=== PATIENT | male | born 1990 | race Hispanic/Latino ===

== ENCOUNTER 2018-09-25 18:18 | Observation (INO) | payer SELFPAY ==
[2018-09-25 18:31] VITALS: BMI 26.5
[2018-09-25] MEDS ORDERED: Sodium Chloride 0.9% 1,000 ML IV SCH (18:45)
[2018-09-25 19:08] LABS: BASO % 0.3 % (0.0-2.0); EOS % 0.1 % (0.0-4.0); HEMOGLOBIN 17.3 g/dL (12.0-18.0); LYMPH # 2.9 K/uL (1.0-4.3); LYMPH % 21.4 % (20.0-40.0); MEAN CELL VOLUME 86.2 fL (80.0-94.0); MEAN CORPUSCULAR HEMOGLOBIN 29.3 pg (27.0-31.0); MEAN PLATELET VOLUME 8.6 fL (7.2-11.7); MONO # 0.9 K/uL (0.0-0.8); MONO % 6.5 % (0.0-10.0); NEUT # 9.6 K/uL (1.8-7.0); NEUT % 71.7 % (50.0-75.0); NRBC % 0.1 % (0.0-2.0); RBC 5.92 Mil/uL (4.40-5.90); RED CELL DISTRIBUTION WIDTH 12.9 % (11.5-14.5); WHITE BLOOD COUNT 13.4 K/uL (4.8-10.8)
--- NOTE | 2018-09-25 19:19 | C.PDOC ---
History Of Present Illness 28 year old male, with no significant past medical history, presents to the ED for evaluation of palpitation. Patient admits to having 4-5 shots of alcohol last night and then states he went to bed. Upon waking this morning, patient reports feeling lethargic, lightheadedness, shortness of breath, and flu-like symptoms. Patient checked his heart rate, realized it was elevated and decided to present to the ED for further evaluation. Patient denies chest pain, vomiting, leg swelling, or any sickness prior to today. Patient denies excessive caffeine or stimulant use. Patient does not follow up with a regular doctor, because he is from [place]. 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 Patient denies past medical history, family history, chronic illness or surgical history. Patient report social drinking, denies drug use. Patient states he quit smoking one month ago. Time Seen by Provider: 09/25/18 18:42 Chief Complaint (Nursing): Palpitations History Per: Patient History/Exam Limitations: no limitations Onset/Duration Of Symptoms: Hrs Current Symptoms Are (Timing): Still Present Associated Symptoms: denies: Chest Pain Additional History Per: Patient Past Medical History Reviewed: Historical Data, Nursing Documentation, Vital Signs Vital Signs: Last Vital Signs Temp 97.5 F L 09/25/18 18:31 Pulse 132 H 09/25/18 18:31 Resp 24 09/25/18 18:31 BP 127/82 09/25/18 18:31 Pulse Ox 99 09/25/18 18:31 - Medical History PMH: No Chronic Diseases Surgical History: No Surg Hx Family History: States: Unknown Family Hx - Social History Hx Alcohol Use: Yes Hx Substance Use: No - Immunization History Hx Tetanus Toxoid Vaccination: No Hx Influenza Vaccination: No Hx Pneumococcal Vaccination: No Review Of Systems Cardiovascular: Negative for: Chest Pain Respiratory: Positive for: Shortness of Breath Gastrointestinal: Negative for: Vomiting Neurological: Positive for: Other (lightheadedness ) Physical Exam - Physical Exam Appears: Non-toxic, No Acute Distress Skin: Warm, Dry, Pale (mild) Head: Atraumatic, Normacephalic Eye(s): bilateral: PERRL, EOMI Oral Mucosa: Moist Lips: Normal Appearing Neck: Normal ROM, Trachea Midline Chest: Symmetrical, No Tenderness Cardiovascular: No Murmur, Other (tachycardic with irregularly irregular rhythm ) Respiratory: Normal Breath Sounds, No Accessory Muscle Use, No Rales, No Wheezing Gastrointestinal/Abdominal: Soft, No Tenderness Back: Normal Inspection, No CVA Tenderness Extremity: Normal ROM, No Deformity Neurological/Psych: Oriented x3, Normal Speech, Normal Cranial Nerves ED Course And Treatment - Laboratory Results Result Diagrams: 09/25/18 19:02 09/25/18 19:02 ECG: Interpreted By Me, Viewed By Me ECG Rhythm: Atrial Fibrillation Interpretation Of ECG: Atrial Fibrillation at rate 164bpm with RVR. Rate From EC O2 Sat by Pulse Oximetry: 99 (on RA ) Pulse Ox Interpretation: Normal Critical Care Time - Critical Care Note Total Time (in mins): 30 Documented critical care: time excludes all time spent performing seperately billable procedures. Medical Decision Making Medical Decision Making: Impression: new onset atrial fibrillation Progress: Bloodwork, urinalysis, CXR, EKG ordered and reviewed. Caridem IVP and IV Fluids given. 1999 Heart rate decreased to low 100s from 160s in atrial fib. Labs with leukocytosis, otherwise unremarkable. JADE Saavedra Hospitalist for further management in observation Disposition Counseled Patient/Family Regarding: Studies Performed, Diagnosis - Disposition Disposition: HOSPITALIZED Disposition Time: 20:00 Condition: FAIR - POA Present On Arrival: None - Clinical Impression Clinical Impression: Atrial fibrillation with RVR - Scribe Statement The provider has reviewed the documentation as recorded by the Scribe (Vicky Arellano) Provider Attestation: All medical record entries made by the Scribe were at my direction and personally dictated by me. I have reviewed the chart and agree that the record accurately reflects my personal performance of the history, physical exam, medical decision making, and the department course for this patient. I have also personally directed, reviewed, and agree with the discharge instructions and disposition.
[2018-09-25 19:20] LABS: ALB/GLOB RATIO 1.7 (1.0-2.1); ALBUMIN 5.3 g/dL (3.5-5.0); ALT/SGPT 39 U/L (21-72); AST/SGOT 28 U/L (17-59); BLOOD UREA NITROGEN 19 mg/dL (9-20); GFR NON-AFRICAN AMERICAN > 60
[2018-09-25 19:26] LABS: INR 1.1; PROTHROMBIN TIME 12.2 SECONDS (9.7-12.2)
[2018-09-25 19:37] LABS: B-TYPE NATRIURETIC PEPTIDE 273 pg/mL (0-450)
[2018-09-25] MEDS ORDERED: Sodium Chloride 0.9% 1,000 ML IV STA (20:27)
--- NOTE | 2018-09-25 21:38 | CP.PCM.HP ---
<Merline Levy - Last Filed: 09/26/18 04:35> History of Present Illness - History of Present Illness History of Present Illness: CC: palpitations Patient is a 28 year old male with no pmhx who presents to the ED for evaluation of new onset palpitations. Patient admits to drinking the evening prior, approx 4-5 shots, and woke up this morning and felt his heart beating fast, experienced some dizziness and weakness. Patient reports his roommate recently had the flu, and assumed he had the same. 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 Patient has never experienced these symptoms before, denies chest pain, nausea, recent illness, diarrhea, drug use, excessive caffeine intake. pmhx: denies pshx: denies meds: denies allergies: NKDA SocHx: former smoker 6 pack year, quit 3.5 wks ago, social alcohol use, denies drug use. FamHx: denies Present on Admission - Present on Admission Any Indicators Present on Admission: No Review of Systems - Constitutional Constitutional: Weakness - Cardiovascular Cardiovascular: Dyspnea, Irregular Heart Rhythm, Palpitations, Rapid Heart Rate. absent: Chest Pain, Radiating Pain, Syncope - Respiratory Respiratory: absent: Cough, Chest Congestion - Gastrointestinal Gastrointestinal: absent: Abdominal Pain, Diarrhea, Nausea - Neurological Neurological: Weakness - Psychiatric Psychiatric: absent: Anxiety - Endocrine Endocrine: Palpitations. absent: Heat Intolorance Past Patient History - Past Social History Smoking Status: Former Smoker - MUSCULOSKELETAL/RHEUMATOLOGICAL Other/Comment: nose fracture. - PSYCHIATRIC Hx Substance Use: No - SURGICAL HISTORY Hx Surgeries: No - ANESTHESIA Hx Anesthesia: No Meds Allergies/Adverse Reactions: Allergies Allergy/AdvReac Type Severity Reaction Status Date / Time No Known Allergies Allergy Verified 09/25/18 18:30 Physical Exam - Constitutional Appears: Non-toxic, No Acute Distress - Head Exam Head Exam: ATRAUMATIC, NORMAL INSPECTION, NORMOCEPHALIC - Eye Exam Eye Exam: EOMI, Normal appearance - ENT Exam ENT Exam: Mucous Membranes Moist, Normal Exam - Neck Exam Neck exam: Positive for: Normal Inspection - Respiratory Exam Respiratory Exam: Clear to Auscultation Bilateral, NORMAL BREATHING PATTERN. absent: Respiratory Distress - Cardiovascular Exam Cardiovascular Exam: Tachycardia, Irregular Rhythm, +S1, +S2 - GI/Abdominal Exam GI & Abdominal Exam: Normal Bowel Sounds, Soft. absent: Distended - Extremities Exam Extremities exam: Positive for: normal inspection. Negative for: calf tenderness, pedal edema - Neurological Exam Neurological exam: Alert, Oriented x3 - Psychiatric Exam Psychiatric exam: Normal Affect, Normal Mood - Skin Skin Exam: Dry, Intact, Normal Color, Warm Results - Vital Signs Recent Vital Signs: Last Vital Signs Temp 97.5 F L 09/25/18 18:31 Pulse 112 H 09/25/18 20:30 Resp 16 09/25/18 20:30 BP 126/78 09/25/18 20:30 Pulse Ox 97 09/25/18 20:30 - Labs Result Diagrams: 09/25/18 19:02 09/25/18 19:02 Labs: Laboratory Results - last 24 hr 09/25/18 09/25/18 09/25/18 19:02 19:02 19:02 WBC 13.4 H RBC 5.92 H Hgb 17.3 Hct 51.0 MCV 86.2 MCH 29.3 MCHC 34.0 RDW 12.9 Plt Count 343 MPV 8.6 Neut % (Auto) 71.7 Lymph % (Auto) 21.4 Gaines % (Auto) 6.5 Eos % (Auto) 0.1 Baso % (Auto) 0.3 Neut # (Auto) 9.6 H Lymph # (Auto) 2.9 Gaines # (Auto) 0.9 H Eos # (Auto) 0.0 Baso # (Auto) 0.0 PT 12.2 INR 1.1 APTT 33 Sodium 140 Potassium 3.9 Chloride 100 Carbon Dioxide 24 Anion Gap 20 BUN 19 Creatinine 1.0 Est GFR ( Amer) > 60 Est GFR (Non-Af Amer) > 60 Random Glucose 116 H Calcium 10.0 Total Bilirubin 1.3 AST 28 ALT 39 Alkaline Phosphatase 57 Total Creatine Kinase 126 Troponin I < 0.0120 NT-Pro-B Natriuret Pep 273 Total Protein 8.4 H Albumin 5.3 H Globulin 3.1 Albumin/Globulin Ratio 1.7 TSH 3rd Generation 1.52 Alcohol, Quantitative < 10 Assessment & Plan - Assessment and Plan (Free Text) Assessment: 28 year old male admitted for evaluation and treatment of new onset A Fib Plan: New Onset A Fib with RVR -EKG on admission: A Fib with RVR, rate of 164/min -monitor on telemetry -cardizem drip in ED w/ rate in 120s, still in a fib -transitioned to cardizem 60mg po q6h -lovenox 80mg q12, therapeutic AC pending need for cardioversion -f/u echo -TSH WNL, f/u lipid panel -Cardio consult Dr. Doherty Ppx -VTE ppx, SCDs -GI ppx, not indicated Discussed with Dr. Saavedra -Merline Levy, PGY-1 <Arsh Saavedra P - Last Filed: 09/26/18 06:45> Results - Vital Signs Recent Vital Signs: Last Vital Signs Temp 98.1 F 09/26/18 04:18 Pulse 93 H 09/26/18 04:18 Resp 20 09/26/18 04:18 BP 109/72 09/26/18 04:18 Pulse Ox 98 09/26/18 04:18 - Labs Result Diagrams: 09/25/18 19:02 09/25/18 19:02 Labs: Laboratory Results - last 24 hr 09/25/18 09/25/18 09/25/18 19:02 19:02 19:02 WBC 13.4 H RBC 5.92 H Hgb 17.3 Hct 51.0 MCV 86.2 MCH 29.3 MCHC 34.0 RDW 12.9 Plt Count 343 MPV 8.6 Neut % (Auto) 71.7 Lymph % (Auto) 21.4 Gaines % (Auto) 6.5 Eos % (Auto) 0.1 Baso % (Auto) 0.3 Neut # (Auto) 9.6 H Lymph # (Auto) 2.9 Gaines # (Auto) 0.9 H Eos # (Auto) 0.0 Baso # (Auto) 0.0 PT 12.2 INR 1.1 APTT 33 Sodium 140 Potassium 3.9 Chloride 100 Carbon Dioxide 24 Anion Gap 20 BUN 19 Creatinine 1.0 Est GFR ( Amer) > 60 Est GFR (Non-Af Amer) > 60 Random Glucose 116 H Calcium 10.0 Total Bilirubin 1.3 AST 28 ALT 39 Alkaline Phosphatase 57 Total Creatine Kinase 126 Troponin I < 0.0120 NT-Pro-B Natriuret Pep 273 Total Protein 8.4 H Albumin 5.3 H Globulin 3.1 Albumin/Globulin Ratio 1.7 TSH 3rd Generation 1.52 Alcohol, Quantitative < 10 Attending/Attestation - Attestation I have personally seen and examined this patient.: Yes I have fully participated in the care of the patient.: Yes I have reviewed all pertinent clinical information: Yes Notes (Text): 09/26/18 06:42 New diagnosis of afib with RVR Recent alcohol consumption 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
[2018-09-25] MEDS: Enoxaparin 80 mg Syringe SC SCH (22:15)
[2018-09-26 00:23] VITALS: RESP 20
[2018-09-26 08:01] LABS: BASO % 0.5 % (0.0-2.0); EOS # 0.1 K/uL (0.0-0.7); EOS % 1.4 % (0.0-4.0); HEMOGLOBIN 16.2 g/dL (12.0-18.0); LYMPH # 2.9 K/uL (1.0-4.3); LYMPH % 30.3 % (20.0-40.0); MEAN CELL VOLUME 86.3 fL (80.0-94.0); MEAN CORPUSCULAR HEMOGLOBIN 29.9 pg (27.0-31.0); MEAN CORPUSCULAR HGB CONC 34.7 g/dL (33.0-37.0); MEAN PLATELET VOLUME 8.5 fL (7.2-11.7); MONO # 0.7 K/uL (0.0-0.8); MONO % 7.7 % (0.0-10.0); NEUT # 5.7 K/uL (1.8-7.0); NEUT % 60.1 % (50.0-75.0); RBC 5.42 Mil/uL (4.40-5.90); WHITE BLOOD COUNT 9.4 K/uL (4.8-10.8)
[2018-09-26 08:13] VITALS: TEMP 98.2
[2018-09-26 08:30] LABS: LDL CHOLESTEROL 115 mg/dL (0-129)
[2018-09-26 08:41] LABS: ALB/GLOB RATIO 1.7 (1.0-2.1); ALBUMIN 4.3 g/dL (3.5-5.0); ALT/SGPT 36 U/L (21-72); AST/SGOT 36 U/L (17-59); BLOOD UREA NITROGEN 20 mg/dL (9-20); CALCIUM 9.3 mg/dl (8.6-10.4); GFR NON-AFRICAN AMERICAN > 60; HDL CHOLESTEROL 53 mg/dL (30-70)
--- NOTE | 2018-09-26 10:07 | RAD ---
Date of service: 09/25/2018 HISTORY: Tachycardia COMPARISON: No prior. FINDINGS: LUNGS: The lungs are well inflated and clear. PLEURA: No pleural effusions or pneumothorax. CARDIOVASCULAR: The heart is normal in size. No aortic atherosclerotic calcifications present. OSSEOUS STRUCTURES: Within normal limits for the patient's age. VISUALIZED UPPER ABDOMEN: Normal. OTHER FINDINGS: None. IMPRESSION: No active pulmonary disease.
[2018-09-26] MEDS: Enoxaparin 80 mg Syringe SC SCH (10:57)
[2018-09-26] MEDS ORDERED: Influenza Vaccine 60 mcg/0.5 mL SYR (4YR UP) IM ONE (15:40)
[2018-09-26 16:01] VITALS: BP 119/80; PULSE 79; O2SAT 98
--- NOTE | 2018-09-26 18:27 | CARD ---
APPROVED REPORT Date of service: 09/26/2018 EXAM: Two-dimensional and M-mode echocardiogram with Doppler and color Doppler. Other Information Quality : GoodRhythm : INDICATION Dizziness and Vertigo Palpitations irregular heart rhythm RISK FACTORS Hypertension 2D DIMENSIONS IVSd0.8 (0.7-1.1cm)LVDd5.0 (3.9-5.9cm) PWd0.9 (0.7-1.1cm)LA Cvbmhz16 (18-58mL) LVDs3.6 (2.5-4.0cm)FS (%) 27.0 % LVEF (%)52.4 (>50%)LVEF (Hernandez's)59.10 % M-Mode DIMENSIONS Left Atrium (MM)3.40 (2.5-4.0cm)IVSd1.01 (0.7-1.1cm) Aortic Root3.38 (2.2-3.7cm)LVDd4.77 (4.0-5.6cm) Aortic Cusp Exc.2.38 (1.5-2.0cm)PWd0.98 (0.7-1.1cm) FS (%) 33 %LVDs3.20 (2.0-3.8cm) LVEF (%)61 (>50%) Mitral Valve MV E Pybktpmb89.8cm/sMV A Lszczpbt91.3cm/sE/A ratio1.1 TDI Lateral E' Peak V13.03cm/sMedial E' Peak V11.77cm/sE/Lateral E'4.4 E/Medial E'4.9 Tricuspid Valve TR Peak Xhdhllbs036tb/sTR Peak Gr.67enCzMSUV49beKs LEFT VENTRICLE The left ventricle is normal size. There is normal left ventricular wall thickness. The left ventricular function is normal. The left ventricular ejection fraction is within the normal range. 59% No regional wall motion abnormalities noted. The left ventricular diastolic function is normal. No left ventricle thrombus noted on this study. There is no ventricular septal defect visualized. There is no left ventricular aneurysm. There is no mass noted in the left ventricle. RIGHT VENTRICLE The right ventricle is normal size. There is normal right ventricular wall thickness. The right ventricular systolic function is normal. ATRIA The left atrium size is normal. The right atrium size is normal. The interatrial septum is intact with no evidence for an atrial septal defect. AORTIC VALVE The aortic valve is normal in structure and function. No aortic regurgitation is present. There is no aortic valvular stenosis. There is no aortic valvular vegetation. MITRAL VALVE The mitral valve is normal in structure and function. There is no evidence of mitral valve prolapse. There is no mitral valve stenosis. There is no mitral valve regurgitation noted. TRICUSPID VALVE The tricuspid valve is normal in structure and function. There is mild tricuspid valve regurgitation noted. There is no tricuspid valve prolapse or vegetation. There is no tricuspid valve stenosis. PULMONIC VALVE The pulmonary valve is normal in structure and function. There is no pulmonic valvular regurgitation. There is no pulmonic valvular stenosis. GREAT VESSELS The aortic root is normal in size. The ascending aorta is normal in size. The pulmonary artery is normal. The IVC is normal in size and collapses >50% with inspiration. PERICARDIAL EFFUSION The pericardium appears normal. There is no pleural effusion. <Conclusion> Normal Study
--- NOTE | 2018-09-26 22:38 | CP.PCM.DIS ---
Provider - Provider Date of Admission: 09/25/18 20:22 Attending physician: Arsh Saavedra MD Consults: 09/25/18 21:53 Cardiology Consult Routine Comment: Consulting Provider: Denton Doherty Consulting Physician: Denton Doherty Reason for Consult: new onset A Fib Time Spent in preparation of Discharge (in minutes): 35 Diagnosis - Discharge Diagnosis (1) Atrial fibrillation with RVR Status: Acute Hospital Course - Lab Results Lab Results: Most Recent Lab Values WBC 9.4 K/uL (4.8-10.8) 09/26/18 07:55 RBC 5.42 Mil/uL (4.40-5.90) 09/26/18 07:55 Hgb 16.2 g/dL (12.0-18.0) 09/26/18 07:55 Hct 46.8 % (35.0-51.0) 09/26/18 07:55 MCV 86.3 fL (80.0-94.0) 09/26/18 07:55 MCH 29.9 pg (27.0-31.0) 09/26/18 07:55 MCHC 34.7 g/dL (33.0-37.0) 09/26/18 07:55 RDW 13.0 % (11.5-14.5) 09/26/18 07:55 Plt Count 265 K/uL (130-400) 09/26/18 07:55 MPV 8.5 fL (7.2-11.7) 09/26/18 07:55 Neut % (Auto) 60.1 % (50.0-75.0) 09/26/18 07:55 Lymph % (Auto) 30.3 % (20.0-40.0) 09/26/18 07:55 [place] % (Auto) 7.7 % (0.0-10.0) 09/26/18 07:55 Eos % (Auto) 1.4 % (0.0-4.0) 09/26/18 07:55 Baso % (Auto) 0.5 % (0.0-2.0) 09/26/18 07:55 Neut # (Auto) 5.7 K/uL (1.8-7.0) 09/26/18 07:55 Lymph # (Auto) 2.9 K/uL (1.0-4.3) 09/26/18 07:55 [place] # (Auto) 0.7 K/uL (0.0-0.8) 09/26/18 07:55 Eos # (Auto) 0.1 K/uL (0.0-0.7) 09/26/18 07:55 Baso # (Auto) 0.0 K/uL (0.0-0.2) 09/26/18 07:55 PT 12.2 SECONDS (9.7-12.2) 09/25/18 19:02 INR 1.1 09/25/18 19:02 APTT 33 SECONDS (21-34) 09/25/18 19:02 Sodium 138 mmol/L (132-148) 09/26/18 07:56 Potassium 4.8 mmol/L (3.6-5.2) 09/26/18 07:56 Chloride 101 mmol/L (98-107) 09/26/18 07:56 Carbon Dioxide 29 mmol/L (22-30) 09/26/18 07:56 Anion Gap 13 (10-20) 09/26/18 07:56 BUN 20 mg/dL (9-20) 09/26/18 07:56 Creatinine 1.0 mg/dL (0.8-1.5) 09/26/18 07:56 Est GFR ( Amer) > 60 09/26/18 07:56 Est GFR (Non-Af Amer) > 60 09/26/18 07:56 Random Glucose 103 mg/dL (75-110) 09/26/18 07:56 Calcium 9.3 mg/dl (8.6-10.4) 09/26/18 07:56 Total Bilirubin 1.1 mg/dL (0.2-1.3) 09/26/18 07:56 AST 36 U/L (17-59) 09/26/18 07:56 ALT 36 U/L (21-72) 09/26/18 07:56 Alkaline Phosphatase 51 U/L (38-126) 09/26/18 07:56 Total Creatine Kinase 126 U/L (55-170) 09/25/18 19:02 Troponin I < 0.0120 ng/mL (0.00-0.120) 01/10/19 19:02 NT-Pro-B Natriuret Pep 273 pg/mL (0-450) 09/25/18 19:02 Total Protein 6.9 g/dL (6.3-8.3) 09/26/18 07:56 Albumin 4.3 g/dL (3.5-5.0) 09/26/18 07:56 Globulin 2.5 gm/dL (2.2-3.9) 09/26/18 07:56 Albumin/Globulin Ratio 1.7 (1.0-2.1) 09/26/18 07:56 Triglycerides 98 mg/dL (0-149) 09/26/18 07:56 Cholesterol 182 mg/dL (0-199) 09/26/18 07:56 LDL Cholesterol Direct 115 mg/dL (0-129) 09/26/18 07:56 HDL Cholesterol 53 mg/dL (30-70) 09/26/18 07:56 TSH 3rd Generation 1.52 mIU/L (0.46-4.68) 09/25/18 19:02 Alcohol, Quantitative < 10 mg/dl (0-10) 09/25/18 19:02 - Hospital Course Hospital Course: On admission: Patient is a 28 year old male with no pmhx who presents to the ED for evaluation of new onset palpitations. Patient admits to drinking the evening prior, approx 4-5 shots, and woke up this morning and felt his heart beating fast, experienced some dizziness and weakness. Patient reports his roommate recently had the flu, and assumed he had the same. 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 Patient has never experienced these symptoms before, denies chest pain, nausea, recent illness, diarrhea, drug use, excessive caffeine intake. Hospital Course: Patient was admitted for atrial fibrillation with RVR, EKG showed patient's heart rate to be 165. Patinet was given Cardizem 20mg IVP stat in the ED. Patient's heart rate remained elevated and was place on a Cardizem drip. Patient Also received therapeutic lovenox, in preperation to cardiovert in the morning. Heart rate then lowered into the 90s. The drip was discontinued and patient was placed on Cardizem 60mg QID. The next morning, patient had reverted to NSR without further intervention. Patient went for echo- preliminary read was normal, however patient should follow up official read with Dr. Doherty. Discharge instructions: Patient is stable for discharge as per Dr. Isaac. Patient is to avoid alcohol as it may be a trigger for your symptoms. Also avoid caffeine and any other stimulants. You are recommended to start taking Aspirin 81mg daily as a precaution until you follow up with the straw baler. You are to follow up with Dr. Doherty, straw baler, at his outpatient clinic. Call [phone] to make an appointment for Saturday. You must also follow up with your primary care physician. If you do not have a Primary Doctor, please follow up with [facility] to establish medical care, at [phone] or [facility] [phone]. You may have to sign up for angela prior to visiting the clinic. Patient should return to ED immediately if symptoms return or worsen. Discharge Exam - Head Exam Head Exam: ATRAUMATIC, NORMAL INSPECTION, NORMOCEPHALIC - Eye Exam Eye Exam: EOMI Pupil Exam: PERRL - ENT Exam ENT Exam: Mucous Membranes Moist - Neck Exam Neck exam: Full Rom, Normal Inspection - Respiratory Exam Respiratory Exam: Clear to PA & Lateral, NORMAL BREATHING PATTERN. absent: Rales, Rhonchi, Wheezes - Cardiovascular Exam Cardiovascular Exam: REGULAR RHYTHM, +S1, +S2 - GI/Abdominal Exam GI & Abdominal Exam: Normal Bowel Sounds, Soft. absent: Guarding, Rebound, Tenderness - Extremities Exam Extremities exam: full ROM, normal inspection, pedal pulses present - Neurological Exam Neurological exam: Alert, CN II-XII Intact, Oriented x3 - Psychiatric Exam Psychiatric exam: Normal Affect, Normal Mood - Skin Skin Exam: Dry, Normal Color, Warm Discharge Plan - Follow Up Plan Condition: FAIR Disposition: HOME/ ROUTINE Instructions: Atrial Fibrillation, Heart Healthy Diet Additional Instructions: Patient is stable for discharge as per Dr. Isaac. Patient is to avoid alcohol as it may be a trigger for your symptoms. Also avoid caffeine and any other stimulants. You are recommended to start taking Aspirin 81mg daily as a precaution until you follow up with the straw baler. You are to follow up with Dr. Doherty, straw baler, at his outpatient clinic. Call [phone] to make an appointment for Saturday. You must also follow up with your primary care physician. If you do not have a Primary Doctor, please follow up with [facility] to establish medical care, at [phone] or [facility] [phone]. You may have to sign up for angela prior to visiting the clinic. Patient should return to ED immediately if symptoms return or worsen. Referrals: [facility] at [facility] [Outside] (Pt stated he wants to call his insurance company before making any appointment for the clinic.) Denton Doherty MD [Staff Provider] -
[2018-09-28] MEDS ORDERED: Influenza Vaccine 60 mcg/0.5 mL SYR (4YR UP) IM ONE (10:00)
== END 2018-09-26 16:09 | disposition home or self-care (01) ==
LOC: C.ER 18:18 → C.9E 20:22 → C.6T 21:57
PROVIDERS: ADMIT Internal Medicine; ATTEND Internal Medicine
DX: I48.91 Unspecified atrial fibrillation (principal); D72.829 Elevated white blood cell count, unspecified; Z87.891 Personal history of nicotine dependence
CPT/HCPCS: 36415; 71045; 80053; 80061; 82550; 83880; 84443; 84484; 85025; 85610; 85730; 90674; 93306; 96365; 96366; 96372; 96376; 99285; G0008; G0378; G0480; J1650; J7030